=== PATIENT | male | born 1995 | race American Indian/Alaskan Native ===

== ENCOUNTER 2018-04-08 20:49 | Emergency (ER) | payer SELFPAY ==
[2018-04-08 21:19] VITALS: BP 109/74
[2018-04-08] MEDS ORDERED: HYDROGEN PEROXIDE ONE (22:22)
[2018-04-08] MEDS ORDERED: HYDROGEN PEROXIDE TP ONE (22:22)
--- NOTE | 2018-04-08 22:29 | Emergency Department Report ---
ED ENT HPI - General Chief complaint: Earache Stated complaint: LEFT EAR PAIN Time Seen by Provider: 04/08/18 21:52 Source: patient Mode of arrival: Ambulatory Limitations: No Limitations - History of Present Illness Initial comments: This is a 22-year-old male brought by mother nontoxic, well nourished in appearance, no acute signs of distress presents to the ED with c/o of left earache. Patient denies any ear drainage. Patient denies any trauma to the area. Patient denies any mastoid tenderness. Patient stated has some tragus tenderness. Patient denies hearing decrease or hearing changes. Patient denies any fever, chills, nausea, vomiting, chest pain, short of breath, headache or stiff neck. Patient stated allergies to PCN. Denies any PMH. MD complaint: ear pain -: days(s) (2) Location: L ear Severity: mild Severity scale (0 -10): 8 Quality: aching Consistency: constant Improves with: none Worsens with: none Associated Symptoms: denies: fever, cough, gum swelling, toothache, pain with swallowing, sore throat, tinnitus, hearing loss, discharge from ear, rhinorrhea - Related Data Previous Rx's Medication Instructions Recorded Last Taken Type Azithromycin [Zithromax Z-RODRICK] 250 mg PO DAILY #6 tablet 04/08/18 Unknown Rx Ciprofloxacin 0.2%(Nf) 4 drops TID #1 droperette 04/08/18 Unknown Rx [Ciprofloxacin Otic 0.2%(Nf)] Allergies Allergy/AdvReac Type Severity Reaction Status Date / Time Penicillins Allergy Unknown Verified 04/08/18 21:19 ED Dental HPI - General Chief complaint: Earache Stated complaint: LEFT EAR PAIN Time Seen by Provider: 04/08/18 21:52 Source: patient Mode of arrival: Ambulatory Limitations: No Limitations - Related Data Previous Rx's Medication Instructions Recorded Last Taken Type Azithromycin [Zithromax Z-RODRICK] 250 mg PO DAILY #6 tablet 04/08/18 Unknown Rx Ciprofloxacin 0.2%(Nf) 4 drops TID #1 droperette 04/08/18 Unknown Rx [Ciprofloxacin Otic 0.2%(Nf)] Allergies Allergy/AdvReac Type Severity Reaction Status Date / Time Penicillins Allergy Unknown Verified 04/08/18 21:19 ED Review of Systems ROS: Stated complaint: LEFT EAR PAIN Other details as noted in HPI Constitutional: denies: chills, fever Eyes: denies: eye pain, eye discharge, vision change ENT: ear pain. denies: throat pain Respiratory: denies: cough, shortness of breath, wheezing Cardiovascular: denies: chest pain, palpitations Endocrine: no symptoms reported Gastrointestinal: denies: abdominal pain, nausea, diarrhea Genitourinary: denies: urgency, dysuria Musculoskeletal: denies: back pain, joint swelling, arthralgia Skin: denies: rash, lesions Neurological: denies: headache, weakness, paresthesias Psychiatric: denies: anxiety, depression Hematological/Lymphatic: denies: easy bleeding, easy bruising ED Past Medical Hx - Past Medical History Previous Medical History?: No - Surgical History Past Surgical History?: No - Social History Smoking Status: Former Smoker Substance Use Type: None - Medications Home Medications: Home Medications Medication Instructions Recorded Confirmed Last Taken Type Azithromycin [Zithromax Z-RODRICK] 250 mg PO DAILY #6 tablet 04/08/18 Unknown Rx Ciprofloxacin 0.2%(Nf) 4 drops TID #1 droperette 04/08/18 Unknown Rx [Ciprofloxacin Otic 0.2%(Nf)] ED Physical Exam - General Limitations: No Limitations General appearance: alert, in no apparent distress - Head Head exam: Present: atraumatic, normocephalic - Eye Eye exam: Present: normal appearance - ENT ENT exam: Present: normal orophraynx, mucous membranes moist - Expanded ENT Exam Expanded TM/Canal exam: Erythema: Left TM, Bulging: Left TM, Cerumen Impaction: Left TM Mouth exam: Present: normal external inspection, tongue normal. Absent: drooling, trismus, muffled voice, laceration Teeth exam: Present: normal inspection Throat exam: Positive: normal inspection, other (Uvula midline). Negative: tonsillar erythema, tonsillomegaly, tonsillar exudate, R peritonsillar mass, L peritonsillar mass - Neck Neck exam: Present: normal inspection, full ROM - Respiratory Respiratory exam: Present: normal lung sounds bilaterally. Absent: respiratory distress - Cardiovascular Cardiovascular Exam: Present: regular rate, normal rhythm. Absent: systolic murmur, diastolic murmur, rubs, gallop - GI/Abdominal GI/Abdominal exam: Present: soft, normal bowel sounds - Rectal Rectal exam: Present: deferred - Extremities Exam Extremities exam: Present: normal inspection - Back Exam Back exam: Present: normal inspection - Neurological Exam Neurological exam: Present: alert, oriented X3 - Psychiatric Psychiatric exam: Present: normal affect, normal mood - Skin Skin exam: Present: warm, dry, intact, normal color. Absent: rash ED Course Vital Signs 04/08/18 21:16 Temperature 98.4 F Pulse Rate 75 Respiratory 16 Rate Blood Pressure 109/74 O2 Sat by Pulse 100 Oximetry - Reevaluation(s) Reevaluation #1: 04/08/18 22:26 Patient is speaking in full sentences with no signs of distress noted. - Ear Wax Removal Left Ear Cerumenolytic Used: Other (peroxide mixed with water 50/50) Ear Canal Irrigated With: warm saline using syringe/angiocath Ear Canal(s) Curettaged: plastic scoops, plastic loops Results: Re-examined: cerumen removed completel TM Visible: TM(s) erythematous Patient Tolerated Procedure: well, no complications Complications: no problems Critical care attestation.: If time is entered above; I have spent that time in minutes in the direct care of this critically ill patient, excluding procedure time. ED Disposition Clinical Impression: Left ear impacted cerumen Left otitis media Qualifiers: Otitis media type: unspecified Qualified Code(s): H66.92 - Otitis media, unspecified, left ear Left otitis externa Qualifiers: Otitis externa type: unspecified type Chronicity: acute Qualified Code(s): H60.502 - Unspecified acute noninfective otitis externa, left ear Disposition: TO HOME OR SELFCARE Is pt being admited?: No Does the pt Need Aspirin: No Condition: Stable Instructions: Otitis Media (ED), Otitis Externa (ED) Additional Instructions: Follow-up with a primary care doctor in 3-5 days or if symptoms worsen and continue return to emergency room as soon as possible. Prescriptions: Azithromycin [Zithromax Z-RODRICK] 250 mg PO DAILY #6 tablet Ciprofloxacin 0.2%(Nf) [Ciprofloxacin Otic 0.2%(Nf)] 4 drops TID #1 droperette Referrals: PRIMARY CAREMD [Referring] - 3-5 Days LES AGUILA MD [Staff Physician] - 3-5 Days [facility] [Outside] - 3-5 Days [facility] [Outside] - 3-5 Days Forms: Work/School Release Form(ED)
[2018-04-09] MEDS ORDERED: ULTRAM PO ONE (00:16)
[2018-04-09] MEDS ORDERED: ULTRAM ONE (00:17)
--- NOTE | 2018-04-09 00:18 | Emergency Department Report ---
Blank Doc - Documentation Documentation: Patient return to the emergency room with mother stating that the Ciprodex was too expensive and they were unable to afford it. This provider is able to give patient a prescription for neomycin polymycin with hydrocortisone for eardrops. Which is $40 versus $300. Patient was given tramadol for pain.
== END 2018-04-08 23:08 | disposition home or self-care (01) ==
LOC: ED 20:49
DX: H66.92 Otitis media, unspecified, left ear (principal); H60.502 Unspecified acute noninfective otitis externa, left ear; H61.22 Impacted cerumen, left ear
CPT/HCPCS: 99282

== ENCOUNTER 2018-12-07 03:42 | Emergency (ER) | payer SELFPAY ==
[2018-12-07 03:53] VITALS: BP 118/82
== END 2018-12-07 07:00 | disposition left against medical advice (07) ==
LOC: ED 03:42
DX: R21 Rash and other nonspecific skin eruption (principal); Z53.21 Procedure and treatment not carried out due to patient leaving prior to being seen by health care provider

== ENCOUNTER 2019-05-27 13:12 | Emergency (ER) | payer SELFPAY ==
--- NOTE | 2019-05-27 16:19 | XRay Report ---
RIGHT HAND 2 VIEWS INDICATION / CLINICAL INFORMATION: Right hand trauma with laceration and pain. COMPARISON: None available. FINDINGS: BONES / JOINT(S): The joint spaces are well-maintained. There is no evidence of fracture or dislocati on. SOFT TISSUES: No significant soft tissue abnormality is seen. I do not identify a radiopaque foreign body. ADDITIONAL FINDINGS: None. IMPRESSION: Negative study. Signer Name: Champ Padilla MD Signed: 05/27/2019 4:14 PM Workstation Name: [id number]
[2019-05-27 18:07] VITALS: BP 121/75
--- NOTE | 2019-05-27 19:26 | Emergency Department Report ---
Blank Doc - Documentation Documentation: went to evaluate pt, there is no one present in the exam room, appears pt has eloped from the emergency department, I never evaluated this patient.
== END 2019-05-27 19:27 | disposition left against medical advice (07) ==
LOC: ED 13:12
DX: M79.641 Pain in right hand (principal); Z53.21 Procedure and treatment not carried out due to patient leaving prior to being seen by health care provider